=== PATIENT | male | born 1980 | race Caucasian/White ===

== ENCOUNTER 2025-01-17 09:01 | Emergency (ER) | payer OTHER ==
[~2025-01-17] VITALS: Ht 185.4 cm; Wt 87.0 kg
[2025-01-17 09:06] VITALS: O2SAT 99
[2025-01-17 09:57] LABS: BASOPHILS % 0.8 % (0.0-2.0); EOSINOPHILS % 0.1 % (0.0-5.0); HEMATOCRIT. 40.8 % (42.0-52.0); HEMOGLOBIN. 13.9 g/dL (14.0-18.0); LYMPHOCYTES % 18.4 % (20.0-50.0); MEAN PLATELET VOLUME 7.9 fl (7.4-10.4); MONOCYTES % 12.3 % (2.0-8.0); NEUTROPHILS % 68.4 % (40.0-76.0); PLATELET 206 x1000/uL (130-400); RED BLOOD CELL COUNT 4.71 mill/uL (4.7-6.1); RED CELL DISTRIBUTION WIDTH 13.1 % (11.6-14.6)
[2025-01-17 10:13] LABS: CREATININE 1.1 mg/dL (0.6-1.3)
[2025-01-17 10:14] LABS: TROPONIN I HIGH SENSITIVITY < 4 ng/L (3.0-53); UREA NITROGEN BLOOD 13 mg/dL (9-23)
[2025-01-17 10:15] LABS: ASPARTATE AMINOTRANSFERASE 89 IU/L (<34)
[2025-01-17 10:16] LABS: BILIRUBIN DIRECT 0.1 mg/dL (<=3.0); BILIRUBIN TOTAL 0.5 mg/dL (0.1-1.0); PROTEIN TOTAL 7.1 g/dL (6.0-8.3)
[2025-01-17] MEDS: ONDANSETRON HCL 4MG/2ML INJ IV ONE (10:38)
[2025-01-17] MEDS: SODIUM CHLORIDE 0.9% 1,000 ML IV ONE (10:38)
[2025-01-17 11:53] LABS: TROPONIN I HIGH SENSITIVITY < 4 ng/L (3.0-53)
[2025-01-17] MEDS ORDERED: ONDA-239 PO (12:03)
[2025-01-17 12:27] VITALS: BP 110/52; PULSE 84; RESP 17; TEMP 37.4; O2SAT 100
[2025-01-17 13:17] LABS: INFLUENZA TYPE A Detected (Pres. Neg.)
[2025-01-17 13:18] LABS: INFLUENZA TYPE B Presumptive Negative (Pres. Neg.); RESPIRATORY SYNCYTIAL VIRUS Not Detected (Not Detectd)
== END 2025-01-17 12:28 | disposition home or self-care (01) ==
LOC: ER 09:01
DX: R55 Syncope and collapse (principal); K52.9 Noninfective gastroenteritis and colitis, unspecified; Z20.822 Contact with and (suspected) exposure to COVID-19
CPT/HCPCS: 80076; 80048; 85025; 87420; 84484; 87804 ×2; 36415; 71045; 70450; 93005; 96374; 99285; 87426; J2405; J7030; Z7610; A4606